=== PATIENT | female | born 1945 | race Caucasian/White ===

== ENCOUNTER 2016-08-20 23:40 | Emergency (ER) | payer MEDICARE, OTHER ==
[~2016-08-20 23:40] MED LIST: AMB5 PO; CELEXA20 PO; CELEXA40 MG PO; CRESTOR20 MG PO; FIORICET PO; LEVOTHYROXIN50 MCG PO; MYCELEX TROCHE10 MG T; P10 PO; P20 PO; P5 PO; PAIN MEDICATION PO; PRILO PO; ZOCOR40 PO
== END 2016-08-21 00:25 | disposition home or self-care (01) ==
LOC: ER 23:40
DX: S92.424A Nondisplaced fracture of distal phalanx of right great toe, initial encounter for closed fracture (principal); Z88.5 Allergy status to narcotic agent; Z88.1 Allergy status to other antibiotic agents; Z79.52 Long term (current) use of systemic steroids; Z79.899 Other long term (current) drug therapy; W04.XXXA Fall while being carried or supported by other persons, initial encounter
CPT/HCPCS: 73630-RT; 99284; A9270-GY